=== PATIENT | female | born 1940 | race Caucasian/White ===

== ENCOUNTER 2017-05-08 06:31 | Day surgery (SDC) | payer MEDICARE, OTHER ==
[~2017-05-08] VITALS: Ht 172.7 cm; Wt 87.7 kg
[2017-05-08] MEDS ORDERED: LACTATED RINGERS 1,000 ML IV SCH (07:05)
[2017-05-08] MEDS ORDERED: LIDOCAINE 1%, 2ML SQ PRN (07:30)
[2017-05-08] MEDS ORDERED: SODIUM CHLORIDE 0.9% 1,000 ML IV SCH (07:37)
[2017-05-08 07:50] VITALS: BP 128/74
[2017-05-08] MEDS ORDERED: FENTANYL PF 100 MCG/2ML ONE (07:56)
[2017-05-08] MEDS ORDERED: DEXAMETHASONE 4 MG/ML, 1ML ONE (08:00)
[2017-05-08] MEDS ORDERED: ONDANSETRON 2MG/ML, 2ML ONE (08:00)
[2017-05-08] MEDS ORDERED: PROPOFOL 10 MG/ML, 20ML ONE (08:00)
[2017-05-08] MEDS ORDERED: ROCURONIUM 10 MG/ML,10ML ONE (08:00)
[2017-05-08] MEDS ORDERED: APIX2.5T PO (08:11)
[2017-05-08] MEDS ORDERED: ASCO500T8 PO (08:11)
[2017-05-08] MEDS ORDERED: INSU100I13 SQ (08:11)
[2017-05-08] MEDS ORDERED: FURO20TA3 PO (08:11)
[2017-05-08] MEDS ORDERED: FERROUS SULFATE PO (08:11)
[2017-05-08] MEDS ORDERED: MELA3TAB2 PO (08:11)
[2017-05-08] MEDS ORDERED: FLUO20TA25 PO (08:11)
[2017-05-08] MEDS ORDERED: NOVOLOG FLEXPEN (08:11)
[2017-05-08] MEDS ORDERED: ATOR20TA9 PO (08:11)
[2017-05-08] MEDS ORDERED: LACT1TAB13 PO (08:11)
[2017-05-08] MEDS ORDERED: ASPI-496 PO (08:11)
[2017-05-08] MEDS ORDERED: METO25TA35 PO (08:19)
[2017-05-08] MEDS ORDERED: POTA10TA11 PO (08:19)
[2017-05-08] MEDS ORDERED: NOVOLOG SQ (08:19)
[2017-05-08] MEDS ORDERED: AMLO5TAB2 PO (08:19)
[2017-05-08] MEDS ORDERED: CALC0.25 PO (08:19)
[2017-05-08] MEDS ORDERED: METH500T97 PO (08:19)
[2017-05-08] MEDS ORDERED: LABETALOL 5MG/ML, 20ML ONE (11:40)
[2017-05-08] MEDS ORDERED: OXYcodone 5 MG/5 ML ORAL.SOL UDC PO PRN (12:00)
[2017-05-08] MEDS ORDERED: PROMETHAZINE 25 MG/ML, 1ML IV PRN (12:00)
[2017-05-08] MEDS ORDERED: ACETAMINOPHEN 325 MG TABLET PO PRN (12:00)
[2017-05-08] MEDS ORDERED: LABETALOL 5MG/ML, 20ML IV PRN (12:00)
[2017-05-08] MEDS ORDERED: morphine SULFATE 10 MG/ML, 1ML IV PRN (12:00)
[2017-05-08] MEDS ORDERED: FENTANYL PF 100 MCG/2ML IV PRN (12:00)
[2017-05-08] MEDS ORDERED: ONDANSETRON 2MG/ML, 2ML IVPush PRN (12:00)
[2017-05-08] MEDS ORDERED: hydrALAzine 20 MG/ML, 1ML IV PRN (12:00)
== END 2017-05-08 15:35 | disposition home or self-care (01) ==
LOC: OR 06:31
PROVIDERS: ATTEND Internal Medicine Geriatric Medicine
DX: K63.3 Ulcer of intestine (principal); D64.9 Anemia, unspecified; F41.9 Anxiety disorder, unspecified; E11.9 Type 2 diabetes mellitus without complications; Z98.890 Other specified postprocedural states; Z86.010 Personal history of colon polyps; Z90.710 Acquired absence of both cervix and uterus; Z85.3 Personal history of malignant neoplasm of breast; Z86.73 Personal history of transient ischemic attack (TIA), and cerebral infarction without residual deficits
CPT/HCPCS: 44376; 82962; J1100; J2405; J2704; J3010; J3490; J7030